=== PATIENT | female | born 1995 | race Caucasian/White ===

== ENCOUNTER 2017-07-29 08:15 | Emergency (ER) | payer OTHER ==
[2017-07-29 08:26] VITALS: TEMP 97.8
--- NOTE | 2017-07-29 09:16 | C.PDOC ---
History Of Present Illness 21-year-old female, presents to the emergency department with complaints of back pain. Patient states she sustained an injury to her lower back s/p slip and fall prior to arrival. Patient notes she fell backward, onto her butt. Denies numbness/weakness, change in bowel habits, bladder/bowel incontinence, loss of consciousness, head injury, neck pain, or any other associated symptoms. No other complaints at this time. Time Seen by Provider: 07/29/17 08:26 Chief Complaint (Nursing): Back Pain History Per: Patient History/Exam Limitations: no limitations Onset/Duration Of Symptoms: Other (Prior to arrival.) Past Medical History Reviewed: Historical Data, Nursing Documentation, Vital Signs Vital Signs: Last Vital Signs Temp 97.8 F 07/29/17 08:20 Pulse 91 H 07/29/17 11:40 Resp 21 07/29/17 11:40 BP 129/72 07/29/17 11:40 Pulse Ox 100 07/29/17 12:31 Family History: States: No Known Family Hx - Social History Hx Alcohol Use: No Hx Substance Use: No - Immunization History Hx Tetanus Toxoid Vaccination: No Hx Influenza Vaccination: No Hx Pneumococcal Vaccination: No Review Of Systems Cardiovascular: Negative for: Chest Pain, Light Headedness Gastrointestinal: Negative for: Nausea, Vomiting Musculoskeletal: Positive for: Back Pain. Negative for: Neck Pain Neurological: Negative for: Weakness, Numbness, Incoordination, Headache, Dizziness Physical Exam - Physical Exam Appears: Non-toxic, No Acute Distress (Moderate Distress) Skin: Normal Color, Warm, Dry, No Rash Head: Atraumatic, Normacephalic Eye(s): bilateral: Normal Inspection, PERRL Nose: Normal Oral Mucosa: Moist Neck: Normal ROM, No Midline Cervical Tenderness, No Paracervical Tenderness, No Step Off Deformity Chest: Symmetrical Cardiovascular: Rhythm Regular, No Murmur Respiratory: Normal Breath Sounds, No Accessory Muscle Use (equal sounds B/L) Gastrointestinal/Abdominal: Soft, No Tenderness Back: Decreased ROM, Paraspinal Tenderness (Diffuse.) Extremity: Normal ROM, No Deformity, No Swelling Neurological/Psych: Oriented x3, Normal Speech, Other (No focal deficit) ED Course And Treatment - Laboratory Results Result Diagrams: 07/29/17 11:40 07/29/17 11:40 ECG: Interpreted By Me, Viewed By Me ECG Rhythm: Sinus Rhythm ECG Interpretation: No Acute Changes Rate From EC O2 Sat by Pulse Oximetry: 100 (RA) Pulse Ox Interpretation: Normal - CT Scan/US CT Spine Other Rad Studies (CT/US): Read By Radiologist, Radiology Report Reviewed CT/US Interpretation: Accession No. : [id number]. Patient Name / ID : JOHN MONROY / [id number]. Exam Date : 07/29/2017 10:10:34 ( Approved ) . Study Comment : Sex / Age : F / 21Y. Creator : Socorro Le MD. Dictator : Socorro Le MD. Molder Meat : Color Shop Helper : Socorro Le MD. Approver2 : Report Date : 07/29/2017 10:32:49. My Comment : . PROCEDURE: CT Lumbar Spine without contrast. HISTORY: fall. COMPARISON: None. TECHNIQUE: Axial computed tomography images were obtained of the lumbar spine without the use of intravenous contrast. Coronal and sagittal reformatted images were created and reviewed. Radiation dose: Total exam DLP = 342.56 mGy- cm. This CT exam was performed using one or more of the following dose reduction techniques: Automated exposure control, adjustment of the mA and/or kV according to patient size, and/or use of iterative reconstruction technique. FINDINGS: VERTEBRAE: There is age indeterminate moderate to severe compression fracture at T12 vertebral body associated with bony retropulsion and moderate to mildly severe narrowing of the spinal canal at this level. The possibility of conus medullaris compression is not totally excluded. There is also age indeterminate moderate compression deformity of L3 vertebral body involving the superior endplate. Moderate diffuse osteopenia/osteoporosis is noted. Mild age indeterminate compression deformity at the body and posterior aspect of L4 and L5 is also noted. DISCS/SPINAL CANAL/NEURAL FORAMINA: L1-2: No evidence of significant stenosis. L2-3: No evidence of significant stenosis. L3-4: Small disc bulge seen without evidence of significant spinal or neural foraminal narrowing. L4-5: Small broad-based disc protrusion associated with mild facet joint hypertrophy which resulting in mild spinal stenosis. L5-S1: Small broad-based disc bulge seen without evidence of significant spinal or neural foraminal narrowing. PARASPINAL SOFT TISSUES: Unremarkable. OTHER FINDINGS: None. IMPRESSION: Age indeterminate severe compression deformity of T12 involving the body and superior endplate and associated with bony retropulsion and moderate to mildly severe narrowing of the spinal canal at this level. The possibility of cord/ conus medullaris compression should be considered. Moderate compression deformity of L3 vertebral body without evidence of significant spinal canal stenosis at this level. Moderate to mildly severe osteoporosis. Age indeterminate mild compression deformity of L4 and L5. Medical Decision Making Medical Decision Making: Impression 21y/o F comes in w/ back pain s/p mechanical slip and fall. Due to severity of symptoms, CT will be ordered instead of XR. Plan: * Type and Screen * CT Lumbar Spine * EKG * CBC, PTT, PT * Chest X-Ray * Dilaudid, Percocet, IVFs * UA/HCG * Reassess and Disposition Patients CT scan is positive for multiple fractures. Case was discussed [facility] and patient will be transferred to , admitting Dr Yayo Wright. Patient agreeable with plan. All questions answered. Disposition - Disposition Disposition: Trans to Other Acute Care Hosp Disposition Time: 12:57 Condition: FAIR Forms: [facility] (Kiswahili) - Clinical Impression Clinical Impression: T12 compression fracture, Compression fracture of L3 lumbar vertebra, Compression fracture of L4 lumbar vertebra, Compression fracture of L5 lumbar vertebra - Scribe Statement The provider has reviewed the documentation as recorded by the Scribe (eJff Miller) All medical record entries made by the Scribe were at my direction and personally dictated by me. I have reviewed the chart and agree that the record accurately reflects my personal performance of the history, physical exam, medical decision making, and the department course for this patient. I have also personally directed, reviewed, and agree with the discharge instructions and disposition.
[2017-07-29] MEDS ORDERED: Oxycodone/Acetaminophen 5/325 mg Tab PO STA (09:18)
[2017-07-29] MEDS ORDERED: Oxycodone/Acetaminophen 5/325 mg Tab ONE (09:29)
--- NOTE | 2017-07-29 10:34 | CT ---
PROCEDURE: CT Lumbar Spine without contrast HISTORY: fall COMPARISON: None. TECHNIQUE: Axial computed tomography images were obtained of the lumbar spine without the use of intravenous contrast. Coronal and sagittal reformatted images were created and reviewed. Radiation dose: Total exam DLP = 342.56 mGy-cm. This CT exam was performed using one or more of the following dose reduction techniques: Automated exposure control, adjustment of the mA and/or kV according to patient size, and/or use of iterative reconstruction technique. FINDINGS: VERTEBRAE: There is age indeterminate moderate to severe compression fracture at T12 vertebral body associated with bony retropulsion and moderate to mildly severe narrowing of the spinal canal at this level. The possibility of conus medullaris compression is not totally excluded. There is also age indeterminate moderate compression deformity of L3 vertebral body involving the superior endplate. Moderate diffuse osteopenia/osteoporosis is noted. Mild age indeterminate compression deformity at the body and posterior aspect of L4 and L5 is also noted. DISCS/SPINAL CANAL/NEURAL FORAMINA: L1-2: No evidence of significant stenosis. L2-3: No evidence of significant stenosis. L3-4: Small disc bulge seen without evidence of significant spinal or neural foraminal narrowing. L4-5: Small broad-based disc protrusion associated with mild facet joint hypertrophy which resulting in mild spinal stenosis. L5-S1: Small broad-based disc bulge seen without evidence of significant spinal or neural foraminal narrowing. PARASPINAL SOFT TISSUES: Unremarkable. OTHER FINDINGS: None. IMPRESSION: Age indeterminate severe compression deformity of T12 involving the body and superior endplate and associated with bony retropulsion and moderate to mildly severe narrowing of the spinal canal at this level. The possibility of cord/ conus medullaris compression should be considered. Moderate compression deformity of L3 vertebral body without evidence of significant spinal canal stenosis at this level. Moderate to mildly severe osteoporosis. Age indeterminate mild compression deformity of L4 and L5.
[2017-07-29] MEDS ORDERED: Sodium Chloride 0.9% 1,000 ML IV ONE (10:57)
[2017-07-29] MEDS ORDERED: HYDROmorphone 1 mg/ml ISec IVP STA ×2 (10:58→13:34)
[2017-07-29] MEDS ORDERED: Sodium Chloride 0.9% 1,000 ML IV STA (10:58)
[2017-07-29] MEDS ORDERED: HYDROmorphone 1 mg/5ml ONE ×2 (11:37→14:29)
[2017-07-29] MEDS ORDERED: Sodium Chloride 0.9% 1,000 ML ONE ×2 (11:37→13:41)
[2017-07-29 11:51] LABS: BASO % 0.3 % (0.0-2.0); EOS % 0.1 % (0.0-4.0); HEMOGLOBIN 13.5 g/dL (11.0-16.0); LYMPH # 0.9 K/uL (1.0-4.3); LYMPH % 6.4 % (20.0-40.0); MEAN CELL VOLUME 83.3 fL (81.0-99.0); MEAN CORPUSCULAR HEMOGLOBIN 28.5 pg (27.0-31.0); MEAN CORPUSCULAR HGB CONC 34.2 g/dL (33.0-37.0); MEAN PLATELET VOLUME 8.4 fL (7.2-11.7); MONO # 0.4 K/uL (0.0-0.8); MONO % 2.5 % (0.0-10.0); NEUT # 13.1 K/uL (1.8-7.0); NEUT % 90.7 % (50.0-75.0); PLATELET COUNT 302 K/uL (130-400); RBC 4.72 Mil/uL (3.80-5.20); RED CELL DISTRIBUTION WIDTH 13.7 % (11.5-14.5); WHITE BLOOD COUNT 14.5 K/uL (4.8-10.8)
[2017-07-29 12:01] LABS: INR 1.2
[2017-07-29 12:04] VITALS: O2SAT 100
[2017-07-29 12:19] LABS: ALB/GLOB RATIO 1.4 (1.0-2.1); ALBUMIN 4.4 g/dL (3.5-5.0); ALT/SGPT 37 U/L (9-52); AST/SGOT 37 U/L (14-36); BLOOD UREA NITROGEN 7 mg/dL (7-17); GFR AFRICAN-AMERICAN > 60; GFR NON-AFRICAN AMERICAN > 60
[2017-07-29 12:55] LABS: HCG,QUALITATIVE URINE NEGATIVE (NEGATIVE)
[2017-07-29 13:05] LABS: URINE BILIRUBIN NEGATIVE (NEGATIVE); URINE BLOOD 1+ (NEGATIVE); URINE CLARITY Hazy (Clear); URINE COLOR Yellow (YELLOW); URINE GLUCOSE (UA) NORMAL (Normal); URINE LEUKOCYTE ESTERASE NEG Leu/uL (Negative); URINE NITRATE NEGATIVE (NEGATIVE); URINE PROTEIN NEGATIVE (NEGATIVE); URINE UROBILINOGEN NORMAL mg/dL (0.2-1.0)
[2017-07-29 14:04] LABS: BANDS 1 % (0-2); LYMPHOCYTE 6 % (20-40); MONOCYTE 2 % (0-10); NEUTROPHIL 91 % (50-75); PLATELET ESTIMATE NORMAL (NORMAL); TOTAL CELLS COUNTED 100
[2017-07-29 14:33] VITALS: BP 126/73; PULSE 84; RESP 20
--- NOTE | 2017-07-29 14:57 | RAD ---
PROCEDURE: CHEST RADIOGRAPH, 1 VIEW HISTORY: Pre Op COMPARISON: None available. FINDINGS: LUNGS: No evidence of focal infiltrate or consolidation in the lungs PLEURA: No pneumothorax or pleural fluid seen. CARDIOVASCULAR: Normal. OSSEOUS STRUCTURES: No significant abnormalities. VISUALIZED UPPER ABDOMEN: Normal. OTHER FINDINGS: None. IMPRESSION: No active disease.
--- NOTE | 2017-07-30 22:00 | CARD ---
APPROVED REPORT EKG Measurement Heart [id number] <Conclusion> Normal sinus rhythm Normal ECG
== END 2017-07-29 14:45 | disposition short-term general hospital (02) ==
LOC: C.ER 08:15
DX: M48.54XA Collapsed vertebra, not elsewhere classified, thoracic region, initial encounter for fracture (principal); M48.56XA Collapsed vertebra, not elsewhere classified, lumbar region, initial encounter for fracture
CPT/HCPCS: 71045; 72131; 80053; 81001; 84703; 85025; 85610; 85730; 86850; 86900; 93005; 96361; 96374; 96375; 96376; 99285; J1170; J2405; J7040